=== PATIENT | male | born 1935 | race Caucasian/White ===

== ENCOUNTER 2021-02-28 11:16 | Emergency (ER) | payer BC, MEDICARE ==
--- NOTE | 2021-02-28 12:43 | EDM.PDOC ---
ED HPI GENERAL MEDICAL PROBLEM - General Chief Complaint: Respiratory Problem Stated Complaint: [id number] HEAD COLD CHEST COLD Time Seen by Provider: 02/28/21 12:43 Source of Information: Reports: Patient, Family (), RN, RN Notes Reviewed History Limitations: Reports: No Limitations - History of Present Illness INITIAL COMMENTS - FREE TEXT/NARRATIVE: Bhargav is a 85 y/o male who presents to the ED via personal vehicle with his for complaints of productive cough and general malaise. The patient reports his symptoms began approximately seven days ago and have progressed in that time. He has been taking Mucinex and OTC robitussin with mild alleviation in symptoms. He denies fever, shaking chills, sinus pressure/pain, sore throat, chest pain, or palpitations. He does attest to mild dyspnea with exertion. The patient states he has been vaccinated for COVID but is concerned as he recently attended a large family gathering seven days ago. - Related Data Allergies Allergy/AdvReac Type Severity Reaction Status Date / Time No Known Allergies Allergy Verified 02/28/21 11:57 Home Meds: Home Meds Losartan [Cozaar] PO DAILY 02/28/21 [History] Rosuvastatin [Crestor] PO DAILY 02/28/21 [History] Social & Family History - Tobacco Use Tobacco Use Status *Q: Never Tobacco User Second Hand Smoke Exposure: No - Caffeine Use Caffeine Use: Reports: Coffee, Soda, Tea, Other - Recreational Drug Use Recreational Drug Use: No ED ROS GENERAL - Review of Systems Review Of Systems: Comprehensive ROS is negative, except as noted in HPI. ED EXAM, GENERAL - Physical Exam Exam: See Below Exam Limited By: No Limitations General Appearance: Alert, No Apparent Distress, Thin Eye Exam: Bilateral Eye: EOMI, Normal Inspection, PERRL (3mm) Ears: Normal External Exam, Normal Canal, Hearing Grossly Normal, Normal TMs Ear Exam: Bilateral Ear: Auricle Normal, Canal Normal, TM normal Nose: Normal Inspection, Normal Mucosa, No Blood Throat/Mouth: Normal Inspection, Normal Lips, Normal Teeth, Normal Gums, Normal Oropharynx, Normal Voice, No Airway Compromise Head: Atraumatic, Normocephalic Neck: Normal Inspection, Supple, Non-Tender, Full Range of Motion. No: Lymphadenopathy (L), Lymphadenopathy (R) Respiratory/Chest: No Respiratory Distress, No Accessory Muscle Use, Chest Non- Tender, Rales (To RLL). No: Crackles, Rhonchi, Wheezing, Stridor, Retractions Cardiovascular: Normal Peripheral Pulses, Regular Rate, Rhythm, No Edema, No Gallop, No JVD, No Murmur, No Rub Peripheral Pulses: 2+: Radial (L), Radial (R) GI/Abdominal: Normal Bowel Sounds, Soft, Non-Tender, No Distention, No Abnormal Bruit, No Mass, Pelvis Stable (Male) Exam: Deferred Rectal (Males) Exam: Deferred Back Exam: Normal Inspection, Full Range of Motion Extremities: Normal Inspection, Normal Range of Motion, Non-Tender, Normal Capillary Refill, No Pedal Edema Neurological: Alert, Oriented, CN II-XII Intact, Normal Cognition, Normal Gait, No Motor/Sensory Deficits Psychiatric: Normal Affect, Normal Mood Skin Exam: Warm, Dry, Intact, Normal Color, No Rash. No: Cyanosis, Jaundice, Mottled, Pallor Course - Vital Signs Last Recorded V/S: Last Vital Signs Temp 99.5 F 02/28/21 11:56 Pulse 94 02/28/21 11:56 Resp 20 02/28/21 11:56 BP 152/83 H 02/28/21 11:56 Pulse Ox 98 02/28/21 11:56 - Orders/Labs/Meds Labs: Laboratory Tests 02/28/21 Range/Units 12:09 Influenza Type A RNA Negative (NEGATIVE) Influenza Type B RNA Negative (NEGATIVE) SARS-CoV-2 RNA (DAGO) Negative (NEGATIVE) - Radiology Interpretation Free Text/Narrative:: [facility] Final Radiology Report Call: [phone] assistance Online chat: [email or web address] Name: BHARGAV GENAO Age: 85Years M Date: 02/28/2021 SSN: -- : [id number] Study: CR CHEST 1V FRONTAL Requesting Physician: Alice Marcus Images: 1 Addl Studies: Provided Clinical History: Productive cough x1 week; [place] Contrast: Contrast Medium: Contrast Amount: Contrast Method: CONFIDENTIALITY STATEMENT This report is intended only for use by the referring physician, and only in accordance with law. If you received this in error, call [phone]. Page 1 of 1 PROCEDURE INFORMATION: Exam: XR Chest Exam date and time: 02/28/2021 12:15 PM Age: 85 years old Clinical indication: Cough; Additional info: Productive cough x1 week; [place] TECHNIQUE: Imaging protocol: XR of the chest. Views: 1 view. COMPARISON: No relevant prior studies available. FINDINGS: Lungs: Increased density in the right lower lung which may represent an area of scarring or pneumonia. Please clinically correlate for right basilar pneumonia. Pleural spaces: Unremarkable. No pleural effusion. No pneumothorax. Heart/Mediastinum: Unremarkable. No cardiomegaly. Bones/joints: Unremarkable. IMPRESSION: 1. Increased density in the right lower lung which may represent an area of scarring or pneumonia. Please clinically correlate for right basilar pneumonia 2. The patient's prior films are unavailable for comparison Thank you for allowing us to participate in the care of your patient. Dictated and Authenticated by: Wander Kay MD 02/28/2021 1:04 PM Central Time ([place] & [place]) - Re-Assessments/Exams Free Text/Narrative Re-Assessment/Exam: 02/28/21 COVID test sent. CXR obtained. Findings of examination and imaging reviewed with patient and . Will treat pneumonia with Augmentin and azithromycin. Discussed supportive cares for bacterial pneumonia. Red flag signs and symptoms which would warrant reevaluation reviewed. Patient verbalized understanding and agreement with the plan of care. Departure - Departure Time of Disposition: 13:17 Disposition: Home, Self-Care 01 Condition: Good Clinical Impression: Community acquired pneumonia Qualifiers: Laterality: right Lung location: lower lobe of lung Qualified Code(s): J18.9 - Pneumonia, unspecified organism - Discharge Information *PRESCRIPTION DRUG MONITORING PROGRAM REVIEWED*: Not Applicable *COPY OF PRESCRIPTION DRUG MONITORING REPORT IN PATIENT LIZBET: Not Applicable Instructions: Community-Acquired Pneumonia, Adult Forms: ED Department Discharge Additional Instructions: Rx: Augmentin Rx: azithromycin 1.) Take all of your antibiotics until gone, even as symptoms improve. 2.) Continue with your Robitussin for cough. 3.) You may take acetaminophen (Tylenol) 650mg every six hours, as fever and general aches persist. 4.) Follow up with your primary care provider in 5-7 days, or return to the emergency department, with any worsening or persistent symptoms despite medications. Sepsis Event Note (ED) - Evaluation Sepsis Screening Result: No Definite Risk
[2021-02-28 12:53] LABS: CORONAVIRUS COVID-19 NAA NEGATIVE (NEGATIVE)
--- NOTE | 2021-02-28 13:05 | CR ---
PROCEDURE INFORMATION: Exam: XR Chest Exam date and time: 02/28/2021 12:15 PM Age: 85 years old Clinical indication: Cough; Additional info: Productive cough x1 week; [place] TECHNIQUE: Imaging protocol: XR of the chest. Views: 1 view. COMPARISON: No relevant prior studies available. FINDINGS: Lungs: Increased density in the right lower lung which may represent an area of scarring or pneumonia. Please clinically correlate for right basilar pneumonia. Pleural spaces: Unremarkable. No pleural effusion. No pneumothorax. Heart/Mediastinum: Unremarkable. No cardiomegaly. Bones/joints: Unremarkable. IMPRESSION: 1. Increased density in the right lower lung which may represent an area of scarring or pneumonia. Please clinically correlate for right basilar pneumonia 2. The patient's prior films are unavailable for comparison
== END 2021-02-28 13:33 | disposition home or self-care (01) ==
LOC: DL.ED 11:16
DX: J18.9 Pneumonia, unspecified organism (principal); Z20.822 Contact with and (suspected) exposure to COVID-19; Z79.899 Other long term (current) drug therapy
CPT/HCPCS: 0240U; 71045; 99283